=== PATIENT | male | born 2000 | race Caucasian/White ===

== ENCOUNTER 2020-04-22 00:07 | Emergency (ER) | payer OTHER ==
--- NOTE | 2020-04-22 00:28 | ER Document Report ---
ED Medical Screen (RME) - General Stated Complaint: FINGER INJURY Time Seen by Provider: 04/22/20 00:23 Mode of Arrival: Ambulatory Information source: Patient Notes: Otherwise healthy 20-year-old male presenting to the emergency department chief complaint of laceration to his left index finger. Patient reports Tdap up-to-date within the last 5 years. Patient reports he was trying to take a sticker off of a item when the blade slipped and cut himself. The laceration is approximately 1 cm, it is linear, and it approximates well and there is no active bleeding noted. I have greeted and performed a rapid initial assessment of this patient. A comprehensive ED assessment and evaluation of the patient, analysis of test results and completion of the medical decision making process will be conducted by additional ED providers. I have specifically instructed the patient or family members with the patient to immediately return to any nursing staff should anything change in the patient's condition or with their chief complaint. Physical Exam - Vital signs Vitals: Temp Pulse Resp BP Pulse Ox 98.1 F 83 20 141/83 H 98 04/22/20 00:23 04/22/20 00:23 04/22/20 00:04/22/20 00:23 04/22/20 00:23 Course - Vital Signs Vital signs: Temp Pulse Resp BP Pulse Ox 98.1 F 83 20 141/83 H 98 04/22/20 00:23 04/22/20 00:23 04/22/20 00:23 04/22/20 00:23 04/22/20 00:23
[2020-04-22] MEDS ORDERED: LIDOCAINE 1% INJ-PF (10 MG/ML) 30 ML SDV INJ ONE (01:11)
--- NOTE | 2020-04-22 02:09 | ER Document Report ---
ED General - General Chief Complaint: Laceration Stated Complaint: FINGER INJURY Time Seen by Provider: 04/22/20 00:23 Mode of Arrival: Ambulatory - HPI Notes: Chief complaint: Finger laceration HPI: 20-year-old male accidentally lacerated his left index finger on a piece of a clean sharp electronic equipment while at work about 5 hours ago. Minimal bleeding. Patient notes that the wound is gaping and comes in because he thinks is probably needs to be stitched. Patient is in good general health taking no medications with no known allergies. Tetanus booster is current. Past Medical History - General Information source: Patient - Social History Smoking Status: Never Smoker Family History: Reviewed & Not Pertinent Patient has homicidal ideation: No Review of Systems - Review of Systems Notes: Constitutional: Negative for fever. HENT: Negative. Eyes: Negative. Cardiovascular: Negative. Respiratory: Negative. Gastrointestinal: Negative. Genitourinary: Negative. Musculoskeletal: As per HPI. Skin: Negative. Neurological: Negative. 10 point ROS negative except as marked above and in HPI. Physical Exam - Vital signs Vitals: Temp Pulse Resp BP Pulse Ox 98.1 F 83 20 141/83 H 98 04/22/20 00:23 04/22/20 00:23 04/22/20 00:23 04/22/20 00:23 04/22/20 00:23 - Notes Notes: GENERAL: Male approximately stated age appearing in no acute distress. SKIN: Good turgor no rashes. HEAD: Normocephalic atraumatic. EYES: PERRLA. EOMI. Conjunctivae and sclerae clear. CHEST: Respirations unlabored. Breath sounds clear and symmetrical. HEART: Regular rhythm. No murmur gallop or rub. EXTREMITIES: 1.5 cm longitudinal laceration along the radial aspect of the mid proximal phalanx left index finger. Distal sensation, motor function and capillary refill normal. No visible tendon disruption. No foreign body visualized. No edema. No calf tenderness. Cap refill less than 1.5 seconds. Dorsalis pedis and posterior tibial pulses 3+ and symmetrical. NEUROLOGICAL: Alert and oriented x3. Nonfocal. PSYCHIATRIC: Appropriate affect. Course - Re-evaluation Re-evalutation: 04/22/20 02:11 Wound is been sutured and patient will be referred to PMD for follow-up. - Vital Signs Vital signs: Temp Pulse Resp BP Pulse Ox 98.1 F 83 20 141/83 H 98 04/22/20 00:25 04/22/20 00:23 04/22/20 00:23 04/22/20 00:23 04/22/20 00:23 Procedures - Laceration/Wound Repair Left Finger 2nd digit Time completed: 02:00 Wound length (cm): 1.5 Wound's Depth, Shape: Superficial Laceration pre-procedure: Betadine prep applied, Sterile drapes applied Anesthetic type: Other - Digital block Volume Anesthetic (mLs): 3 Wound explored: Clean Irrigated w/ Saline (mLs): 500 Wound Repaired With: Sutures Suture Size/Type: 4:0, Ethilon Number of Sutures: 4 Post-procedure wound care: Sterile dressing applied Post-procedure NV exam normal: Yes Complications: No Discharge - Discharge Clinical Impression: Laceration left index finger Condition: Stable Disposition: HOME, SELF-CARE Instructions: Antibiotic Ointment Protection ([facility]), Laceration Care ([facility]), Soap Cleansing ([facility]) Additional Instructions: Take Advil or Tylenol as needed for pain. Keep the wound dry for the first 24 hours and then you may wash it daily with mild soap and water avoiding any hard scrubbing over the area of stitches. Apply a fresh dressing using bacitracin ointment and a Band-Aid daily. Return here immediately if you develop fever, chills, increasing swelling or redness with associated pain or any drainage from the wound.
[2020-04-22 02:28] VITALS: BP 122/67
== END 2020-04-22 02:26 | disposition home or self-care (01) ==
LOC: ER 00:07
DX: S61.211A Laceration without foreign body of left index finger without damage to nail, initial encounter (principal); W26.8XXA Contact with other sharp object(s), not elsewhere classified, initial encounter; Y93.89 Activity, other specified; Y99.0 Civilian activity done for income or pay
CPT/HCPCS: 99282; 12001; J3490